=== PATIENT | male | born 1995 | race Caucasian/White ===

== ENCOUNTER 2017-01-24 21:06 | Emergency (ER) | payer BC, OTHER ==
[~2017-01-24] VITALS: Ht 170.2 cm; Wt 81.6 kg
[2017-01-25 00:51] VITALS: BP 133/84
[2017-01-25] MEDS ORDERED: ACETAMINOPHEN TAB 650MG DOSE (2X325MG) PO ONE (01:30)
[2017-01-25] MEDS ORDERED: KETOROLAC 60 MG/2 ML VIAL (J1885) IM ONE (01:30)
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
== END 2017-01-25 02:57 | disposition home or self-care (01) ==
LOC: M ED 22:11
DX: M25.561 Pain in right knee (principal)

== ENCOUNTER → 2017-02-03 | Outpatient (REF) | payer OTHER | LOC: M LAB REF 21:09 | PROVIDERS: ATTEND Physician Assistant | DX: R30.0 Dysuria (principal) ==

== ENCOUNTER 2017-03-07 22:31 | Emergency (ER) | payer BC, OTHER ==
[~2017-03-07] VITALS: Ht 167.6 cm; Wt 77.1 kg
[2017-03-07 23:30] LABS: BASO % 0.3 % (0.0-1.0); EOS # 0.2 K/mm3 (0.0-0.50); EOS % 1.4 % (0.0-3.0); LARGE UNSTAINED CELL # 0.1 K/mm3 (0.0-0.4); LARGE UNSTAINED CELL % 1.3 % (0.0-4.0); LYMPH # 3.6 K/mm3 (1.5-6.5); LYMPH % 31.9 % (24.0-44.0); MEAN CORPUSCULAR HEMOGLOBIN 32.4 pg (27.0-33.0); MEAN CORPUSCULAR VOLUME 98.1 fl (80.0-96.0); MONO # 0.6 K/mm3 (0.0-0.8); MONO % 5.5 % (0.0-5.0); NEUTROPHILS # 6.7 K/mm3 (1.8-7.7); NEUTROPHILS % 59.6 % (36.0-66.0); PLATELET COUNT, AUTOMATED 194 k/mm3 (150-450); RED CELL DISTRIBUTION WIDTH 12.5 % (11.5-14.5); WHITE BLOOD COUNT 11.2 K/mm3 (4.0-10.0)
[2017-03-07 23:59] LABS: ALBUMIN 3.9 GM/DL (3.2-5.2); ALBUMIN/GLOBULIN RATIO 1.34 (1.00-1.93); ALKALINE PHOSPHATASE 86 U/L (45-117); ALT/SGPT 16 U/L (12-78); ANION GAP 7 MEQ/L (8-16); AST/SGOT 11 U/L (15-37); BILIRUBIN,DIRECT 0.1 MG/DL (0.0-0.2); BILIRUBIN,TOTAL 0.5 MG/DL (0.2-1.0); BLOOD UREA NITROGEN 14 MG/DL (7-18); CALCIUM LEVEL 9.1 MG/DL (8.5-10.1); CARBON DIOXIDE LEVEL 30 MEQ/L (21-32); CHLORIDE LEVEL 102 MEQ/L (98-107); CREATININE FOR GFR 0.87 MG/DL (0.70-1.30); GLOMERULAR FILTRATION RATE > 60.0 (>60); GLUCOSE, FASTING 105 MG/DL (70-105); POTASSIUM SERUM 3.5 MEQ/L (3.5-5.1); SODIUM LEVEL 139 MEQ/L (136-145); TOTAL PROTEIN 6.8 GM/DL (6.4-8.2)
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
[2017-03-08 00:35] VITALS: BP 146/47
== END 2017-03-08 00:37 | disposition home or self-care (01) ==
LOC: M ED 22:49
DX: A08.4 Viral intestinal infection, unspecified (principal); N50.3 Cyst of epididymis; F17.200 Nicotine dependence, unspecified, uncomplicated

== ENCOUNTER → 2017-06-02 | Outpatient (CLI) | payer OTHER | LOC: M OUTALCOH 07:55 | PROVIDERS: ATTEND Psychiatry & Neurology Psychiatry | DX: F11.20 Opioid dependence, uncomplicated (principal); F15.20 Other stimulant dependence, uncomplicated ==

== ENCOUNTER 2017-06-09 14:15 | Outpatient (RCR) | payer OTHER | END 2017-06-17 | LOC: M OUTALCOH 14:15 | PROVIDERS: ATTEND Psychiatry & Neurology Psychiatry | DX: F11.20 Opioid dependence, uncomplicated (principal); F15.20 Other stimulant dependence, uncomplicated; F14.20 Cocaine dependence, uncomplicated ==

== ENCOUNTER → 2019-05-23 | Outpatient (REF) | payer MEDICAID, OTHER ==
[2019-05-23 17:40] LABS: BASO % 0.6 % (0.0-1.0); EOS # 0.1 10^3/uL (0.0-0.50); EOS % 1.3 % (0.0-3.0); HEMOGLOBIN 14.8 g/dl (13.5-17.5); LYMPH # 2.2 10^3/uL (1.5-6.5); LYMPH % 42.5 % (24.0-44.0); MEAN CORPUSCULAR HEMOGLOBIN 31.3 pg (27.0-33.0); MEAN CORPUSCULAR HGB CONC 32.9 g/dl (32.0-36.5); MEAN CORPUSCULAR VOLUME 95.1 fl (80.0-96.0); MONO # 0.6 10^3/uL (0.0-0.8); MONO % 10.5 % (0.0-5.0); NEUTROPHILS # 2.4 10^3/uL (1.8-7.7); NEUTROPHILS % 45.1 % (36.0-66.0); PLATELET COUNT, AUTOMATED 204 10^3/uL (150-450); RED BLOOD COUNT 4.73 10^6/uL (4.30-6.10); WHITE BLOOD COUNT 5.2 10^3/uL (4.0-10.0)
[2019-05-23 17:45] LABS: ALT/SGPT 32 U/L (12-78); BLOOD UREA NITROGEN 14 MG/DL (7-18); CALCIUM LEVEL 9.3 MG/DL (8.5-10.1); CARBON DIOXIDE LEVEL 30 MEQ/L (21-32); CHLORIDE LEVEL 106 MEQ/L (98-107); CREATININE FOR GFR 0.95 MG/DL (0.70-1.30); GLOMERULAR FILTRATION RATE > 60.0 (>60); GLUCOSE, FASTING 91 MG/DL (70-100); POTASSIUM SERUM 4.4 MEQ/L (3.5-5.1); SODIUM LEVEL 141 MEQ/L (136-145)
[2019-05-23 17:46] LABS: ALBUMIN 4.3 GM/DL (3.2-5.2); BILIRUBIN,DIRECT 0.3 MG/DL (0.0-0.2); BILIRUBIN,TOTAL 1.4 MG/DL (0.2-1.0); CHOLESTEROL LEVEL 152 MG/DL (<200); CHOLESTEROL RISK RATIO 2.923 (<5); FREE T4 1.05 NG/DL (0.76-1.46); HDL CHOLESTEROL 52 MG/DL (>40); LDL CHOLESTEROL 91 MG/DL (<100); NON-HDL-C 100 MG/DL; THYROID STIMULATING HORMONE 0.718 uIU/ML (0.358-3.740); TOTAL PROTEIN 7.2 GM/DL (6.4-8.2); TRIGLYCERIDES LEVEL 47 MG/DL (<150)
[2019-05-23 17:54] LABS: HEMOGLOBIN A1c 5.7 %
[2019-05-24 11:02] LABS: HEPATITIS B SURFACE ANTIGEN NEGATIVE (NEGATIVE)
[2019-05-24 11:30] LABS: HEPATITIS C VIRUS ABY INDEX 0.1 INDEX (<0.8)
== END ==
LOC: M LAB REF 16:28
PROVIDERS: ATTEND Nurse Practitioner Family
DX: Z13.9 Encounter for screening, unspecified (principal)

== ENCOUNTER → 2019-08-12 | Outpatient (REF) | payer OTHER ==
[2019-08-12 19:26] LABS: CHLAMYDIA DNA AMPLIFICATION NEGATIVE (NEGATIVE); GC DNA AMPLIFICATION NEGATIVE (NEGATIVE)
== END ==
LOC: M LAB REF 08:59
PROVIDERS: ATTEND Physician Assistant Medical
DX: Z20.2 Contact with and (suspected) exposure to infections with a predominantly sexual mode of transmission (principal)

== ENCOUNTER 2019-10-28 13:06 | Emergency (ER) | payer OTHER ==
[~2019-10-28] VITALS: Ht 170.2 cm; Wt 70.2 kg
[2019-10-28 15:01] VITALS: BP 134/79
== END 2019-10-28 15:03 | disposition home or self-care (01) ==
LOC: M ED 13:06
DX: F41.8 Other specified anxiety disorders (principal); F15.10 Other stimulant abuse, uncomplicated; F33.9 Major depressive disorder, recurrent, unspecified; F17.210 Nicotine dependence, cigarettes, uncomplicated

== ENCOUNTER 2020-03-28 09:47 | Emergency (ER) | payer OTHER ==
[~2020-03-28] VITALS: Ht 170.2 cm; Wt 68.2 kg
[2020-03-28 09:54] VITALS: BP 121/75
[2020-03-28] MEDS ORDERED: KETOROLAC 30 MG/ML 1ML VIAL IM ONE (10:15)
--- NOTE | 2020-03-28 10:58 | REP ---
RIGHT FOREARM, TWO VIEWS: There is no evidence of an acute fracture, dislocation or intrinsic bone disease. IMPRESSION: No fracture or dislocation. Electronically Signed by Hira Arevalo MD 04/02/2020 05:52 P
--- NOTE | 2020-03-28 11:14 | REP ---
LUMBOSACRAL SPINE: Five views of the lumbosacral spine performed. There is no compression fracture or malalignment. Disc spaces are well preserved. Posterior elements are intact. IMPRESSION: No fracture or dislocation. Electronically Signed by Hira Arevalo MD 04/02/2020 05:58 P
--- NOTE | 2020-03-28 11:15 | REP ---
LEFT KNEE, FIVE VIEWS: There is no evidence of an acute fracture, dislocation, or intrinsic bone disease. IMPRESSION: No fracture or dislocation. Electronically Signed by Hira Arevalo MD 04/02/2020 05:58 P
== END 2020-03-28 11:30 | disposition home or self-care (01) ==
LOC: EDBD 09:47 → M ED 09:47
DX: S80.02XA Contusion of left knee, initial encounter (principal); S50.11XA Contusion of right forearm, initial encounter; Y04.8XXA Assault by other bodily force, initial encounter; Y92.89 Other specified places as the place of occurrence of the external cause
CPT/HCPCS: 72110; 73090; 73564; 96372; 99284; J1885

== ENCOUNTER 2020-04-07 03:33 | Emergency (ER) | payer OTHER | END 2020-04-07 03:42 | disposition left against medical advice (07) | LOC: M ED 03:33 | DX: Z53.21 Procedure and treatment not carried out due to patient leaving prior to being seen by health care provider (principal) ==

== ENCOUNTER 2020-04-07 03:46 | Emergency (ER) | payer OTHER | END 2020-04-07 03:52 | disposition left against medical advice (07) | LOC: M ED 03:46 | DX: Z53.21 Procedure and treatment not carried out due to patient leaving prior to being seen by health care provider (principal) ==

== ENCOUNTER 2020-04-26 01:20 | Emergency (ER) | payer OTHER ==
[~2020-04-26] VITALS: Ht 170.2 cm; Wt 70.5 kg
[2020-04-26] MEDS ORDERED: NALOXONE INJ 0.4MG/1ML VIAL (J2310 PER 1MG) IV STA ×2 (02:07→05:11)
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
[2020-04-26 04:39] LABS: AMPHETAMINES LEVEL URINE POSITIVE (NEGATIVE); BARBITURATES URINE NEGATIVE (NEGATIVE); BENZODIAZEPINES URINE NEGATIVE (NEGATIVE); CANNABINOIDS URINE NEGATIVE (NEGATIVE); COCAINE METABOLITE URINE NEGATIVE (NEGATIVE); METHADONE URINE NEGATIVE (NEGATIVE); OPIATES URINE POSITIVE (NEGATIVE); PHENCYCLIDINE URINE NEGATIVE (NEGATIVE)
[2020-04-26 05:45] VITALS: BP 133/76
== END 2020-04-26 06:17 | disposition home or self-care (01) ==
LOC: M ED 01:20
DX: F15.10 Other stimulant abuse, uncomplicated (principal); F17.210 Nicotine dependence, cigarettes, uncomplicated
CPT/HCPCS: 36415; 70450; 72125; 80307; 96374; 96376; 99284; G0480; J2310

== ENCOUNTER 2020-08-17 18:32 | Emergency (ER) | payer OTHER ==
[~2020-08-17] VITALS: Ht 170.2 cm; Wt 61.9 kg
[2020-08-17] MEDS ORDERED: NS 1,000 ML IV ONE (19:30)
[2020-08-17] MEDS ORDERED: PANTOPRAZOLE 40MG VIAL (C9113 PER 1) IV ONE (19:30)
[2020-08-17] MEDS ORDERED: ONDANSETRON 4MG/2ML VIAL IV ONE (19:30)
[2020-08-17 20:03] LABS: BASO % 0.3 % (0.0-1.0); EOS # 0.1 10^3/uL (0.0-0.5); EOS % 0.5 % (0.0-3.0); HEMOGLOBIN 14.5 g/dl (13.5-17.5); LYMPH # 1.8 10^3/uL (1.5-5.0); LYMPH % 13.7 % (24.0-44.0); MEAN CORPUSCULAR HEMOGLOBIN 29.8 pg (27.0-33.0); MEAN CORPUSCULAR HGB CONC 31.5 g/dl (32.0-36.5); MEAN CORPUSCULAR VOLUME 94.7 fl (80.0-96.0); MONO # 1.1 10^3/uL (0.0-0.8); MONO % 8.1 % (0.0-5.0); NEUTROPHILS # 10.2 10^3/uL (1.5-8.5); NEUTROPHILS % 77.1 % (36.0-66.0); PLATELET COUNT, AUTOMATED 257 10^3/uL (150-450); RED BLOOD COUNT 4.86 10^6/uL (4.30-6.10); WHITE BLOOD COUNT 13.2 10^3/uL (4.0-10.0)
[2020-08-17 20:16] LABS: INR 0.97; PROTHROMBIN TIME 13.1 SECONDS (12.5-14.3)
[2020-08-17 20:24] LABS: ALBUMIN 4.2 GM/DL (3.2-5.2); ALT/SGPT 24 U/L (12-78); BILIRUBIN,DIRECT 0.1 MG/DL (0.0-0.2); BILIRUBIN,TOTAL 0.6 MG/DL (0.2-1.0); BLOOD UREA NITROGEN 12 MG/DL (7-18); CALCIUM LEVEL 9.4 MG/DL (8.5-10.1); CARBON DIOXIDE LEVEL 32 MEQ/L (21-32); CHLORIDE LEVEL 101 MEQ/L (98-107); CREATININE FOR GFR 0.81 MG/DL (0.70-1.30); ETHYL ALCOHOL (ETHANOL) < 0.003 % (0.000-0.010); GLOMERULAR FILTRATION RATE > 60.0 (>60); GLUCOSE, FASTING 94 MG/DL (70-100); LIPASE 64 U/L (73-393); SODIUM LEVEL 140 MEQ/L (136-145); TOTAL PROTEIN 7.7 GM/DL (6.4-8.2)
[2020-08-17 20:36] LABS: AMPHETAMINES LEVEL URINE NEGATIVE (NEGATIVE); BARBITURATES URINE NEGATIVE (NEGATIVE); BENZODIAZEPINES URINE NEGATIVE (NEGATIVE); CANNABINOIDS URINE NEGATIVE (NEGATIVE); COCAINE METABOLITE URINE NEGATIVE (NEGATIVE); METHADONE URINE NEGATIVE (NEGATIVE); OPIATES URINE POSITIVE (NEGATIVE); PHENCYCLIDINE URINE NEGATIVE (NEGATIVE)
[2020-08-17] MEDS ORDERED: BACT800T5 PO (20:39)
[2020-08-17 20:47] VITALS: BP 149/80
== END 2020-08-17 20:50 | disposition home or self-care (01) ==
LOC: M ED 18:32
DX: N39.0 Urinary tract infection, site not specified (principal); L02.419 Cutaneous abscess of limb, unspecified; F15.10 Other stimulant abuse, uncomplicated; F17.210 Nicotine dependence, cigarettes, uncomplicated
CPT/HCPCS: 80048; 80076; 80307; 81001; 83690; 85025; 85610; 87086; 96361; 96374; 96375; 99284; C9113; G0480; J2405

== ENCOUNTER 2020-11-02 21:07 | Emergency (ER) | payer OTHER ==
[~2020-11-02] VITALS: Ht 170.2 cm; Wt 78.9 kg
[~2020-11-02 21:07] MED LIST: BACT800T5 PO
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
--- OUTSIDE RECORDS SUMMARY | 2020-11-02 21:14 | CCD | Continuity of Care Document ---
Author Author [facility] Address [address] [place] [address] Phone Support Name Relationship Address Phone [employer] [address] [place] [address] Doctor Provided, Family No PRS Unknown Unava ilable Allergies, Adverse Reactions, Alerts No known allergies. Medications No known medications. Problems Active Problems Medical Problem Onset Date Status Drug abuse Active Procedures Procedure Date Performed Status Xray Chest One View August 20 1:47pm completed Relevant Diagnostic Tests and/or Laboratory Data Laboratory Results Test Date/Time Result Interpretation Reference Range Result Comment Performing Site White Blood Count August 20, 2020 1:35p m 6.6 10e3/uL 4.45-10.71 [facility], [address] [place] [address] [id number] Red Blood Count August 20, 2020 1:35pm 4.04 10e6/uL 4.3-6.1 [facility], [address] [place] [address] 54751 Hemoglobin August 20, 2020 1:35pm 12.4 g/dL 13-18 [facility], [address] [place] [address] 72451 Hematocrit August 20, 2020 1:35pm 38.1 % 42-52 [facility], [address] [place] [address] 36957 Mean Corpuscular Volume August 1:35pm 94.3 fl 80-96 [facility], [address] [place] [address] 59499 Mean Corpuscular Hemoglobin August 20, 2020 1:35pm 30.7 pg 27-31 [facility], [address] [place] [address] 89811 Mean Corpuscular Hemoglobin Concent August 20, 2020 1:35pm 32.5 g/dl 33-37 [facility], [address] [place] [address] 91185 Red Cell Distribution Width August 20, 2020 1:35pm 13 % 11-15 [facility], [address] [place] [address] Platelet Count August 20, 2020 1:35pm 222 10e3/ul 130-472 [facility], [address] [place] [address] Mean Platelet Volume August 20 1:35pm 9.5 fl 9.1-13.1 [facility], [address] [place] [address] Neutrophils (%) (Auto) August 20, 2020 1:35pm 61.4 % 41-77 [facility], [address] [place] [address] Absolute Neutrophil August 20 1:35pm 4.1 # 1.7-7.6 [facility], [address] [place] [address] Lymphocytes (%) (Auto) August 20, 2020 1:35pm 24.5 % 14-46 [facility], [address] [place] [address] Lymphocytes # (Auto) August 20 1:35pm 1.6 # 0.6-4.6 [facility], [address] [place] [address] Monocytes (%) (Auto) August 20 1:35pm 12.9 % 4-12 [facility], [address] [place] [address] 90043 Monocytes # August 20, 2020 1:35pm 0.9 # 0.2-1.2 [facility], [address] [place] [address] Eosinophils (%) (Auto) August 20, 2020 1:35pm 0.5 % 0-7 [facility], [address] [place] [address] Absolute Eosinophils (CBC) August 20, 2020 1:35pm 0.0 # 0.0-0.5 [facility], [address] [place] [address] Basophils (%) (Auto) August 20 1:35pm 0.5 % 0.4-1.3 [facility], [address] [place] [address] Absolute Basophils (CBC) August 1:35pm 0.0 # 0.0-0.2 [facility], [address] [place] [address] 23103 Immature Granulocyte % (Auto) Novemb 2019 1:35pm 0.2 % 0-2 [facility], [address] [place] [address] Absolute Immature Granulocyte (auto August 20, 2020 1:35pm 0.0 # 0-0.1 [facility], [address] [place] [address] 76713 Add Manual Differential August 1:35pm No [facility], [address] [place] [address] 45671 Urine Color August 20, 2020 1:29pm Yellow [facility], [address] [place] [address] 23336 Urine Appearance August 20, 2020 1:29pm Clear CLEAR [facility], [address] [place] [address] 54836 Urine pH August 20, 2020 1:29pm 6.0 [facility], [address] [place] [address] 43981 Urine Specific [place] August 20, 2020 1:29pm 1.034 [facility], [address] [place] [address] 33184 Urine Leukocyte Esterase August 1:29pm Negative NEGATIVE [facility], [address] [place] [address] 50234 Urine Nitrate August 20, 2020 1:29pm Negative NEGATIVE [facility], [address] [place] [address] 24634 Urine Protein August 20, 2020 1:29pm Trace NEGATIVE [facility], [address] [place] [address] 32822 Urine Glucose August 20, 2020 1:29pm Negative NEGATIVE [facility], [address] [place] [address] 28513 Urine Ketones August 20, 2020 1:29pm 40 mg/dl NEGATIVE [facility], [address] [place] [address] 65848 Urine Urobilinogen August 20 0 1:29pm 1 eu/dl [facility], [address] [place] [address] 33727 Urine Bilirubin August 20, 2020 1:29pm Negative NEGATIVE [facility], [address] [place] [address] 85098 Urine Blood August 20, 2020 1:29pm Negative NEGATIVE [facility], [address] [place] [address] 24439 Add Urine Microanalysis August 1:29pm No [facility], [address] [place] [address] 15870 Blood Urea Nitrogen August 20 1:35pm 18 mg/dL 9-23 [facility], [address] [place] [address] 12412 Sodium Level August 20, 2020 1:35pm 142 mmol/L 132-146 [facility], [address] [place] [address] 41742 Potassium Level August 20, 2020 1:35pm 3.9 mmol/L 3.5-5.5 [facility], [address] [place] [address] 91520 Chloride Level August 20, 2020 1:35pm 109 mmol/l 99-109 [facility], [address] [place] [address] 62193 Carbon Dioxide Level August 20 1:35pm 26 mmol/l 20-31 [facility], [address] [place] [address] 91701 Anion Gap August 20, 2020 1:35pm 11 mmol/l 8-16 [facility], [address] [place] [address] 37747 Glucose Level August 20, 2020 1:35pm 104 mg/dL 74-106 [facility], [address] [place] [address] 76429 Creatinine August 20, 2020 1:35pm 1.0 mg/dL 0.5-1.1 [facility], [address] [place] [address] 52483 Glomerular Filtration Rate Calc Nove [email or web address] 1:35pm Greater than 60 ml/min ABOVE 60 [facility], [address] [place] [address] 25281 Alanine Aminotransferase (ALT/SGPT) August 20, 2020 1:35pm 26 U/L 10-49 [facility], [address] [place] [address] 87985 Aspartate Amino Transf (AST/SGOT) No [email or web address] 1:35pm 29 U/L 0-33 [facility], [address] [place] [address] 46315 Alkaline Phosphatase August 20 1:35pm 96 U/L 45-129 [facility], [address] [place] [address] 32828 Calcium Level August 20, 2020 1:35pm 9.4 mg/dL 8.5-10.1 [facility], [address] [place] [address] 39410 Total Bilirubin August 20, 2020 1:35pm 1.0 mg/dL 0.3-1.2 [facility], [address] [place] [address] 96890 Albumin August 20, 2020 1:35pm 3.9 g/dL 3.2-4.8 [facility], [address] [place] [address] 80177 Serum Total Protein August 20 1:35pm 7.2 g/dL 5.7-8.2 [facility], [address] [place] [address] Urine Marijuana (THC) Screen 2019 2:30pm Negative ng/mL Cutoff 50 [facility], [address] [place] [address] Urine Phencyclidine Screen August 20, 2020 2:30pm Negative ng/mL Cutoff 25 [facility], [address] [place] [address] Urine Cocaine Screen August 20 2:30pm Negative ng/mL Cutoff 150 [facility], [address] [place] [address] Urine Methamphetamines Screen 2019 2:30pm Presumptive positive ng/mL Cutoff 500 This test is for screening purposes o nly. Confirmation of positive results will be sent to our Reference lab only at the Physician's request. [facility], [address] [place] [address] Urine Opiates Screen August 20 2:30pm Presumptive positive ng/mL Cutoff 100 This test is for screening purposes o nly. Confirmation of positive results will be sent to our Reference lab only at the Physician's request. [facility], [address] [place] [address] Urine Amphetamines Screen August 202019 2:30pm Presumptive positive ng/mL Cutoff 500 This test is for screening purposes o nly. Confirmation of positive results will be sent to our Reference lab only at the Physician's request. [facility], [address] [place] [address] Urine Benzodiazepines Screen 2019 2:30pm Negative ng/mL Cutoff 150 [facility], [address] [place] [address] Ur Tricyclic Antidepressants Screen August 20, 2020 2:30pm Negative ng/mL Cutoff 300 [facility], [address] [place] [address] Urine Methadone Screen August 20, 2020 2:30pm Negative ng/mL Cutoff 200 [facility], [address] [place] [address] Urine Barbiturates August 20 0 2:30pm Negative ng/mL Cutoff 200 [facility], [address] [place] [address] Urine Oxycodone Screen August 20, 2020 2:30pm Negative ng/mL Cutoff 100 [facility], [address] [place] [address] Urine Propoxyphene Screen August 202019 2:30pm Negative ng/mL Cutoff 300 [facility], [address] [place] [address] 69954 Urine Buprenorphine Screen August 20, 2020 2:30pm Negative ng/mL Cutoff 10 [facility], [address] [place] [address] 49947 Acetaminophen Level August 20 1:35pm Less than 2.0 ug/mL 10 -30 [facility], [address] [place] [address] 68066 Salicylates Level August 20, 2020 1:35p m 0.0 mg/dl 0.0-2.8 MILD TOXICITY: Greater than 30.0 mg/dlSEVERE TOXICITY: Greater than 50.0 mg/dl [facility], [address] [place] [address] 71417 Ethyl Alcohol Level August 20 1:35pm Less than 3 mg/dL 50- 79 md/dL Mild Intoxication>80 mg/dL Intoxication>300 mg/dL Severe Impairment>400 mg/dL CriticalFor Medical Purposes Only [facility], [address] [place] [address] 13961 Thyroid Stimulating Hormone (TSH) No 2019 1:35pm 0.54 uIU/mL 0.35-5.50 [facility], [address] [place] [address] 25574 Health Concerns Health Concerns may be documented in an alternate section. Advance Directives Advance Directive Response Recorded Date/Time Advanced Directive No No [email or web address] 2:08pm Does Patient have a DNR? No August 20, 2020 2:08pm Healthcare Proxy No Maryann mcleod 2019 2:08pm Living Will No August 20, 2020 1:44pm Chief Complaint and Reason for Visit Chief Complaint OVERDOSE Encounters Encounter Location(s) Ar rival/Admit Date Discharge/Depart Date Provider(s) Departed Emergency [facility]-Emergency Room ER August 20, 2020 1:27pm August 20, 2020 4:17pm null Assessments No Assessments Information Available Functional Status No Functional Status information available Goals Goals may be documented in an alternate section. Immunizations No Immunization Information Available Mental Status Observation Response Ashvin e Recorded Impairments No impairments or barriers August 20, 2020 2:02pm Medical Equipment No Medical Equipment Information available Insurance Providers Guarantor CARLIN Winchester [facility] Address [address] [place] [address] Contact Info. Home Phone: Payer Policy Id Coverage Id Subscriber's Name Subscriber Id Effective Date Expiration Date MEDICAID [id number] CARLIN Winchester I[employer] [id number] Self Pay Self N/A Plan of Treatment [...] of Observation Current every day smoker August 2:08pm Observation Status Observation Response Ashvin e of Response Smoking Status Current every day smoker August 20, 2020 2:08pm Assigned Sex Male Vital Signs Vital Reading [...]
[2020-11-02] MEDS ORDERED: HALOPERIDOL 5MG/ML VIAL (J1630 PER 1) IM STA (22:38)
[2020-11-02] MEDS ORDERED: LORazepam 2 MG/ML VIAL IM STA (22:38)
[2020-11-03 00:18] LABS: HEMATOCRIT 41.2 % (42.0-52.0); HEMOGLOBIN 13.7 g/dl (13.5-17.5); MEAN CORPUSCULAR HEMOGLOBIN 31.4 pg (27.0-33.0); MEAN CORPUSCULAR HGB CONC 33.3 g/dl (32.0-36.5); MEAN CORPUSCULAR VOLUME 94.5 fl (80.0-96.0); PLATELET COUNT, AUTOMATED 222 10^3/uL (150-450); RED BLOOD COUNT 4.36 10^6/uL (4.30-6.10); WHITE BLOOD COUNT 6.5 10^3/uL (4.0-10.0)
[2020-11-03 00:25] LABS: ACETAMINOPHEN LEVEL < 2.0 UG/ML (10.0-30.0); ALBUMIN 4.1 GM/DL (3.2-5.2); ALT/SGPT 28 U/L (12-78); BILIRUBIN,DIRECT 0.2 MG/DL (0.0-0.2); BILIRUBIN,TOTAL 0.9 MG/DL (0.2-1.0); BLOOD UREA NITROGEN 10 MG/DL (7-18); CALCIUM LEVEL 9.4 MG/DL (8.5-10.1); CARBON DIOXIDE LEVEL 26 MEQ/L (21-32); CHLORIDE LEVEL 109 MEQ/L (98-107); ETHYL ALCOHOL (ETHANOL) < 0.003 % (0.000-0.010); GLOMERULAR FILTRATION RATE > 60.0 (>60); GLUCOSE, FASTING 111 MG/DL (70-100); SALICYLATE LEVEL < 1.7 MG/DL (5.0-30.0); SODIUM LEVEL 142 MEQ/L (136-145); TOTAL PROTEIN 7.4 GM/DL (6.4-8.2)
[2020-11-03 04:13] LABS: AMPHETAMINES LEVEL URINE POSITIVE (NEGATIVE); BARBITURATES URINE NEGATIVE (NEGATIVE); BENZODIAZEPINES URINE NEGATIVE (NEGATIVE); CANNABINOIDS URINE POSITIVE (NEGATIVE); COCAINE METABOLITE URINE NEGATIVE (NEGATIVE); METHADONE URINE NEGATIVE (NEGATIVE); OPIATES URINE NEGATIVE (NEGATIVE); PHENCYCLIDINE URINE NEGATIVE (NEGATIVE)
[2020-11-03 10:57] VITALS: BP 138/89
== END 2020-11-03 11:09 | disposition home or self-care (01) ==
LOC: M ED 21:07
DX: F15.20 Other stimulant dependence, uncomplicated (principal)
CPT/HCPCS: 80048; 80076; 80307; 84443; 85027; 96372; 99284; G0480; J1630; J2060

== ENCOUNTER 2020-11-05 18:51 | Inpatient (IN) | payer OTHER ==
[~2020-11-05] VITALS: Ht 170.2 cm; Wt 78.9 kg
[2020-11-05 20:08] LABS: AMPHETAMINES LEVEL URINE POSITIVE (NEGATIVE); BARBITURATES URINE NEGATIVE (NEGATIVE); BENZODIAZEPINES URINE NEGATIVE (NEGATIVE); CANNABINOIDS URINE NEGATIVE (NEGATIVE); COCAINE METABOLITE URINE NEGATIVE (NEGATIVE); METHADONE URINE NEGATIVE (NEGATIVE); OPIATES URINE POSITIVE (NEGATIVE); PHENCYCLIDINE URINE NEGATIVE (NEGATIVE)
[2020-11-05 20:31] LABS: HEMATOCRIT 44.2 % (42.0-52.0); HEMOGLOBIN 14.5 g/dl (13.5-17.5); MEAN CORPUSCULAR HEMOGLOBIN 31.1 pg (27.0-33.0); MEAN CORPUSCULAR HGB CONC 32.8 g/dl (32.0-36.5); MEAN CORPUSCULAR VOLUME 94.8 fl (80.0-96.0); PLATELET COUNT, AUTOMATED 184 10^3/uL (150-450); RED BLOOD COUNT 4.66 10^6/uL (4.30-6.10); WHITE BLOOD COUNT 5.8 10^3/uL (4.0-10.0)
[2020-11-05 21:26] LABS: ACETAMINOPHEN LEVEL < 2.0 UG/ML (10.0-30.0); ALBUMIN 4.2 GM/DL (3.2-5.2); ALT/SGPT 24 U/L (12-78); BILIRUBIN,DIRECT 0.2 MG/DL (0.0-0.2); BILIRUBIN,TOTAL 0.6 MG/DL (0.2-1.0); BLOOD UREA NITROGEN 12 MG/DL (7-18); CALCIUM LEVEL 9.3 MG/DL (8.5-10.1); CARBON DIOXIDE LEVEL 31 MEQ/L (21-32); CHLORIDE LEVEL 104 MEQ/L (98-107); CREATININE FOR GFR 0.93 MG/DL (0.70-1.30); ETHYL ALCOHOL (ETHANOL) < 0.003 % (0.000-0.010); GLOMERULAR FILTRATION RATE > 60.0 (>60); GLUCOSE, FASTING 88 MG/DL (70-100); SALICYLATE LEVEL < 1.7 MG/DL (5.0-30.0); SODIUM LEVEL 139 MEQ/L (136-145); THYROID STIMULATING HORMONE 0.451 uIU/ML (0.358-3.740); TOTAL PROTEIN 7.3 GM/DL (6.4-8.2)
[2020-11-05] MEDS ORDERED: MOM 30ML SUSPENSION UDC PO PRN (23:30)
[2020-11-05] MEDS ORDERED: MAALOX 30 ML SUSP *UDC PO PRN (23:30)
[2020-11-05] MEDS ORDERED: ACETAMINOPHEN TAB 650MG DOSE (2X325MG) PO PRN (23:30)
[2020-11-06] MEDS ORDERED: HALOPERIDOL 5MG/ML VIAL (J1630 PER 1) IM ONE
[2020-11-06] MEDS ORDERED: LORazepam 2 MG/ML VIAL IM ONE
[2020-11-06 01:05] LABS: RSV AMPLIFICATION NEGATIVE (NEGATIVE)
[2020-11-06 08:58] VITALS: BP 122/69
[2020-11-06] MEDS ORDERED: SERTRALINE HCL 50 MG TAB PO SCH (09:00)
--- NOTE | 2020-11-06 16:51 | IPNPDOC ---
Date Seen The patient was seen on 11/06/20. Progress Note I attempted to conduct medical history and physical, however patient refuses to be seen, is yelling profanities and throwing food across room. Please re-consult when patient is stable. VS, I&O, 24H, Fishbone Vital Signs/I&O Vital Signs Date Time Temp Pulse Resp B/P (MAP) Pulse Ox O2 Delivery O2 Flow Rate FiO2 11/06/20 08:58 98.1 98 14 122/69 (86) 97 Room Air Laboratory Data 24H LABS Laboratory Tests 2 11/05/20 19:25: Urine Opiates Screen POSITIVEH, Urine Methadone Screen NEGATIVE, Urine Barbiturates Screen NEGATIVE, Urine Phencyclidine Screen NEGATIVE, Urine Amphetamines Screen POSITIVEH, Urine Benzodiazepines Screen NEGATIVE, Urine Cocaine Metabolite Screen NEGATIVE, Urine Cannabinoids Screen NEGATIVE 11/05/20 20:21: Anion Gap 4L, Glomerular Filtration Rate > 60.0, Calcium Level 9.3, Total Bilirubin 0.6, Direct Bilirubin 0.2, Aspartate Amino Transf (AST/SGOT) 22, Alanine Aminotransferase (ALT/SGPT) 24, Alkaline Phosphatase 72, Total Protein 7.3, Albumin 4.2, Albumin/Globulin Ratio 1.4, Thyroid Stimulating Hormone (TSH) 0.451, Salicylates Level < 1.7L, Acetaminophen Level < 2.0L, Ethyl Alcohol Level < 0.003 11/05/20 20:22: Nucleated Red Blood Cells % (auto) 0.0 11/06/20 00:05: Coronavirus (COVID-19)(PCR) POSITIVEA, Influenza Type A (RT-PCR) NEGATIVE, Influenza Type B (RT-PCR) NEGATIVE, Respiratory Syncytial Virus (PCR) NEGATIVE CBC/BMP Laboratory Tests 11/05/20 20:21 11/05/20 20:22 FORTUNATO VASQUEZ MD Nov 06, 2020 16:50
--- NOTE | 2020-11-06 20:35 | ECGEPIP ---
[facility] - ED Test Date: 2020-11-05 Pat Name: CARLIN FISHMAN Department: Room: [place] [address] Gender: Male Inspector [employer]: : 1995 Requested By: AUTUMN Myrick Order Number: [id number] Reading MD: Abel Bassett Measurements Intervals [place] Rate: 93 P: 55 MN: 157 QRS: 76 QRSD: 93 T: 48 QT: 374 QTc: 466 Interpretive Statements SINUS RHYTHM NO PRIORS FOR COMPARISON Electronically Signed on 11-06-2020 20:35:14 EST by Abel Bassett
[2020-11-06] MEDS: traZODone 50 MG TAB PO PRN (20:59)
[2020-11-06] MEDS: OLANZapine ORAL DISINTEGRATING TAB 5MG PO PRN (21:00)
[2020-11-07] MEDS: ESCITALOPRAM OXALATE 5MG TABLET (LEXAPRO) PO SCH (09:55)
[2020-11-07] MEDS: risperiDONE 0.5 MG TAB PO SCH ×2 (09:55→21:36)
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
[2020-11-07] MEDS ORDERED: LORazepam 2 MG/ML VIAL IM STA (14:04)
[2020-11-07] MEDS ORDERED: diphenhydrAMINE 50MG/ML VIAL (J1200) IM STA (14:04)
[2020-11-07] MEDS ORDERED: OLANZapine INTRAMUSCULAR 10MG VIAL IM ONE (14:15)
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
[2020-11-07 18:04] VITALS: BP 142/70
[2020-11-07] MEDS: OLANZapine ORAL DISINTEGRATING TAB 5MG PO PRN (21:36)
[2020-11-07] MEDS: traZODone 50 MG TAB PO PRN (21:36)
[2020-11-07 21:40] VITALS: BP 124/60
[2020-11-08 06:00] VITALS: BP 128/72
[2020-11-08] MEDS: risperiDONE 0.5 MG TAB PO SCH (09:04)
[2020-11-08] MEDS: ESCITALOPRAM OXALATE 5MG TABLET (LEXAPRO) PO SCH (09:04)
[2020-11-08] MEDS ORDERED: OLANZapine ORAL DISINTEGRATING TAB 5MG PO STA (12:48)
[2020-11-08] MEDS ORDERED: LORazepam 2 MG TAB PO STA (12:48)
[2020-11-08] MEDS: risperiDONE 2 MG TAB PO SCH (21:00)
[2020-11-08] MEDS ORDERED: risperiDONE 1 MG TAB PO SCH (21:00)
--- NOTE | 2020-11-08 22:00 | MHIPNPDOC ---
[facility] Progress Note Progress Note DATE OF SERVICE: 11/08/20 HISTORY: . VITAL SIGNS: See below. NEW TEST RESULTS: . CURRENT MEDICATIONS: See below. MENTAL STATUS EXAMINATION: Patient is a -year old male, who is . Speech: Is . Language skills are . Thought processes including: . Thought content: . Abstract reasoning, and computation: . Description of associ ations: . Description of abnormal or psychotic thoughts: . Judgment: . Insight: [very limited, good, fair. poor]. Orientation: . Recent and remote memory: . Attention span and concentration: .Subjective: Mr. Molina is a 25 year old undomiciled, single, male with a history of Polysubstance use disorder (Stimulant, Opioid and Cannabis use), severe type, who was brought into the [facility] ED and then later admitted, to the [facility], following experiencing a depressive decompensation with suicidal ideation, intent and vague plan. Staff stated that they witnessed him attempting suffocate himself; Vitals were taken, all were within normal limits including oxygen saturation; he was very agitated/anxious/psychomotor agitated; appeared increasingly paranoid/guarded/responding to internal stimuli; agreed and asked to take any psychotropic medication to reduce his paranoia and anxiety; received Zyprexa 10 mg by mouth and Ativan 2 mg by mouth with fair/good relief of symptoms. Now, resting comfortable, vitals stable. Objective: General Appearance: unkempt, disheveled, appears stated age, hospital scubs/clothing Build: thin Demeanor: hostile, mistrustful, withdrawn, guarded, very figety Eye Contact: poor Activity: agitated, anxious, hostile Behavior: uncooperative, agitated, impulsive, aggressive, hyperactive, restless, loss of interests, anhedonia, withdrawn Speech: rapid, pressured Mood: angry, irritable Affect: labile, hostile, disorganized Thought Process: flight of ideas, racing Thought Content (Delusions): persecutory, paranoia, delusions Thought Content (Other): guarded, internal-stimuli, appears paranoid Thought Content (Aggressive): none reported Perception (Hallucinations): auditory Perception (Other): none reported Cognition (Impairment of): attention/concentration, ability to abstract Cognition(Intelligence Est.): average Oriented: Awake, Alert, Oriented times three Insight: poor Judgment: Poor Psychosis: Psychotic Perceptions A/P: Mr. Molina is a 25 year old undomiciled, single, male with a history of Polysubstance use disorder (Stimulant, Opioid and Cannabis use), severe type, who was brought into the [facility] ED and then later admitted, to the [facility], following experiencing a depressive decompensation with suicidal ideation, intent and vague plan. 1) Continued Lexapro 5 mg q am for depressive/anxiety sxs and increased Risperdal to 2 mg twice daily for alleviation of psychotic sxs 2) Continued to encourage participation in community milieu. 3) COVID precautions; Continue to collaborate with Hospitalist in terms of optimizing his medical comorbidities. 4) He would likely greatly benefit from a halfway drug rehabilitation program. 5) He is now on a 1:1 for safety Dx: Stimulant/Opioid use disorder, severe type r/o substance induced psychotic disorder r/o Schizoaffective disorder, Bipolar type Total time spent: 60 minutes Vital Signs Vital Signs Date Time Temp Pulse Resp B/P (MAP) Pulse Ox O2 Delivery O2 Flow Rate FiO2 11/08/20 06:00 97.9 76 17 128/72 (90) 95 Room Air Current Medications Current Medications Medications (Trade) Dose Ordered Sig/Tristin Route PRN Reason Start Time Stop Time Status Last Admin Dose Admin Acetaminophen (Tylenol Tab) 650 mg Q6HP PRN PO HEADACHE or DISCOMFORT 11/05/20 23:30 Al Hydrox/Mg Hydrox/Simethicone (Mylanta) 30 ml Q4HP PRN PO HEARTBURN/INDIGESTION 11/05/20 23:30 Diphenhydramine HCl (Benadryl) 50 mg STAT STAT IM 11/07/20 14:04 11/07/20 14:08 DC 11/07/20 14:21 Escitalopram Oxalate (Lexapro) 5 mg DAILY PO 11/07/20 09:00 11/08/20 09:04 Home Med (Med Rec Complete!) ASDIRECTED XX 11/05/20 22:30 11/05/20 22:20 DC Lorazepam (Ativan) 2 mg Q6HP PRN PO ANXIETY/AGITATION 11/08/20 17:15 Lorazepam (Ativan) 2 mg STAT STAT IM 11/07/20 14:04 11/07/20 14:08 DC 11/07/20 14:21 Lorazepam (Ativan) 2 mg STAT STAT PO 11/08/20 12:48 11/08/20 12:50 DC 11/08/20 12:53 Magnesium Hydroxide (Milk Of Magnesia) 30 ml DAILYPRN PRN PO CONSTIPATION 11/05/20 23:30 Miscellaneous (Unresolved Clarification Entry) SEE LABEL COMMENTS DAILY XX 11/07/20 09:00 Nicotine (Nicoderm Cq 21mg) 1 patch DAILY PRN TD Nicotine withdrawl. 11/05/20 23:30 Olanzapine (ZyPREXA ZYDIS) 5 mg Q4HP PRN PO AGITATION 11/05/20 23:30 11/07/20 21:36 Olanzapine (ZyPREXA ZYDIS) 10 mg STAT STAT PO 11/08/20 12:48 11/08/20 12:50 DC 11/08/20 12:53 Risperidone (RisperDAL) 0.5 mg BID PO 11/07/20 09:00 11/08/20 10:26 DC 11/08/20 09:04 Risperidone (RisperDAL) 1 mg BID PO 11/08/20 21:00 11/08/20 17:12 DC Risperidone (RisperDAL) 2 mg BID PO 11/08/20 21:00 Sertraline HCl (Zoloft) 50 mg DAILY PO 11/06/20 09:00 11/07/20 08:51 DC 11/06/20 10:05 Trazodone HCl (Desyrel) 50 mg QHSP PRN PO INSOMNIA 11/05/20 23:30 11/07/20 21:36 Allergies Coded Allergies: No Known Allergies (Verified , 10/28/19) MELA SMITH MD Nov 08, 2020 22:00
[2020-11-09] MEDS: ESCITALOPRAM OXALATE 5MG TABLET (LEXAPRO) PO SCH (08:17)
[2020-11-09] MEDS: risperiDONE 2 MG TAB PO SCH ×2 (08:17→21:00)
[2020-11-09 09:15] VITALS: BP 142/72
[2020-11-09 09:30] VITALS: BP 139/67
[2020-11-09] MEDS ORDERED: HALOPERIDOL 5MG/ML VIAL (J1630 PER 1) IV STA (09:30)
[2020-11-09] MEDS ORDERED: HALOPERIDOL 5MG/ML VIAL (J1630 PER 1) IM STA ×2 (09:32→09:55)
[2020-11-09 09:45] VITALS: BP_SYST 136; BP_SYST 139; BP_DIAS 67; BP_DIAS 75
[2020-11-09] MEDS ORDERED: LORazepam 2 MG/ML VIAL IM STA (09:55)
[2020-11-09] MEDS ORDERED: diphenhydrAMINE 50MG/ML VIAL (J1200) IM STA (09:55)
[2020-11-09 10:00] VITALS: BP 136/75
[2020-11-09] MEDS: DIVALPROEX 500 MG TAB PO SCH (21:00)
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
[2020-11-10] MEDS: risperiDONE 2 MG TAB PO SCH ×2 (09:56→21:36)
[2020-11-10] MEDS: DIVALPROEX 500 MG TAB PO SCH ×2 (09:56→21:36)
[2020-11-10] MEDS: LORazepam 2 MG TAB PO PRN (13:21)
--- NOTE | 2020-11-10 15:19 | MHIPNPDOC ---
[facility] Progress Note Progress Note Subjective: Mr. Molina is a 25 year old undomiciled, single, male with a history of Polysubstance use disorder (Stimulant, Opioid and Cannabis use), severe type, who was brought into the [facility] ED and then later admitted, to the [facility], following experiencing a depressive decompensation with suicidal ideation, intent and vague plan. Rafa seems to be approaching closer to his baseline now. He was much more lucid and goal directed with conversation today. Can you call my family and see who will let me stay with them, so I can attend rehab? He still appeared to have some paranoid ideation present but the psychosis seems to be greatly abating in intensity. He was compliant with his psychotropic regimen. Denies any side effects from the Risperdal or Depakote. Overall, seems to be much more organized in thought; ADLs are improving, as he requests to shower daily. Objective: Seen and evaluated, alert and oriented times three, hygiene fair/good, fair eye contact, appears stated age, no psychomotor abnormalities; Speech is decreased in production, slow in rate and soft in volume; Mood: a little better, affect: constricted, decreased intensity and range. TP are circumstantial and a little more organized than prior assessments; TC contains paranoid ideation but no huy delusional themes; denies any passive/active S/H/I/I/P; denies AH/VH/TH but still does appear to be somewhat internally preoccupied, responding to internal stimuli; insight, impulse control and judgment are poor Diagnoses: Opioid/Stimulant use disorder, severe type Unspecified psychotic disorder r/o substance induced psychotic disorder A/P: Mr. Molina is a 25 year old undomiciled, single, male with a history of Polysubstance use disorder (Stimulant, Opioid and Cannabis use), severe type, who was brought into the [facility] ED and then later admitted, to the [facility], following experiencing a depressive decompensation with suicidal ideation, intent and vague plan. 1) Today, continued Depakote DR 500 mg po BID; Depakote trough level ordered for 11/14/20. Continued Risperdal at 2 mg twice daily for alleviation of mood/psychotic sxs 2) Continued to encourage participation in community milieu. 3) COVID precautions; Continue to collaborate with Hospitalist in terms of optimizing his medical comorbidities. 4) He would likely greatly benefit from a longterm drug rehabilitation program, upon clinical stabilization. 5) Continue 1:1 for safety Total time spent: 30 minutes Vital Signs Vital Signs Date Time Temp Pulse Resp B/P (MAP) Pulse Ox O2 Delivery O2 Flow Rate FiO2 11/09/20 10:00 98.8 84 16 136/75 96 Room Air Current Medications Current Medications Medications (Trade) Dose Ordered Sig/Tristin Route PRN Reason Start Time Stop Time Status Last Admin Dose Admin Acetaminophen (Tylenol Tab) 650 mg Q6HP PRN PO HEADACHE or DISCOMFORT 11/05/20 23:30 Al Hydrox/Mg Hydrox/Simethicone (Mylanta) 30 ml Q4HP PRN PO HEARTBURN/INDIGESTION 11/05/20 23:30 Diphenhydramine HCl (Benadryl) 50 mg STAT STAT IM 11/07/20 14:04 11/07/20 14:08 DC 11/07/20 14:21 Diphenhydramine HCl (Benadryl) 50 mg STAT STAT IM 11/09/20 09:55 11/09/20 09:58 DC 11/09/20 10:08 Divalproex Sodium (Depakote) 500 mg BID PO 11/09/20 21:00 11/10/20 09:56 Escitalopram Oxalate (Lexapro) 5 mg DAILY PO 11/07/20 09:00 11/09/20 12:49 DC 11/08/20 09:04 Haloperidol (Haldol) 2 mg STAT STAT IM 11/09/20 09:32 11/09/20 09:33 Cancel Haloperidol (Haldol) 2 mg STAT STAT IV 11/09/20 09:30 11/09/20 09:33 DC 11/09/20 09:40 Haloperidol (Haldol) 10 mg STAT STAT IM 11/09/20 09:55 11/09/20 09:58 DC 11/09/20 10:07 Home Med (Med Rec Complete!) ASDIRECTED XX 11/05/20 22:30 11/05/20 22:20 DC Lorazepam (Ativan) 2 mg Q6HP PRN PO ANXIETY/AGITATION 11/08/20 17:15 11/10/20 13:21 Lorazepam (Ativan) 2 mg STAT STAT IM 11/07/20 14:04 11/07/20 14:08 DC 11/07/20 14:21 Lorazepam (Ativan) 2 mg STAT STAT IM 11/09/20 09:55 11/09/20 09:58 DC 11/09/20 10:08 Lorazepam (Ativan) 2 mg STAT STAT PO 11/08/20 12:48 11/08/20 12:50 DC 11/08/20 12:53 Magnesium Hydroxide (Milk Of Magnesia) 30 ml DAILYPRN PRN PO CONSTIPATION 11/05/20 23:30 Miscellaneous (Unresolved Clarification Entry) SEE LABEL COMMENTS DAILY XX 11/07/20 09:00 Nicotine (Nicoderm Cq 21mg) 1 patch DAILY PRN TD Nicotine withdrawl. 11/05/20 23:30 Olanzapine (ZyPREXA ZYDIS) 5 mg Q4HP PRN PO AGITATION 11/05/20 23:30 11/07/20 21:36 Olanzapine (ZyPREXA ZYDIS) 10 mg STAT STAT PO 11/08/20 12:48 11/08/20 12:50 DC 11/08/20 12:53 Risperidone (RisperDAL) 0.5 mg BID PO 11/07/20 09:00 11/08/20 10:26 DC 11/08/20 09:04 Risperidone (RisperDAL) 1 mg BID PO 11/08/20 21:00 11/08/20 17:12 DC Risperidone (RisperDAL) 2 mg BID PO 11/08/20 21:00 11/10/20 09:56 Sertraline HCl (Zoloft) 50 mg DAILY PO 11/06/20 09:00 11/07/20 08:51 DC 11/06/20 10:05 Trazodone HCl (Desyrel) 50 mg QHSP PRN PO INSOMNIA 11/05/20 23:30 11/07/20 21:36 Allergies Coded Allergies: No Known Allergies (Verified , 10/28/19) MELA SMITH MD Nov 10, 2020 15:19
[2020-11-10 16:28] VITALS: BP 100/52
[2020-11-10] MEDS: OLANZapine ORAL DISINTEGRATING TAB 5MG PO PRN (17:31)
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
[2020-11-10 21:26] VITALS: BP 119/54
[2020-11-11] MEDS: DIVALPROEX 500 MG TAB PO SCH ×2 (09:12→20:39)
[2020-11-11] MEDS: risperiDONE 2 MG TAB PO SCH ×2 (09:12→20:39)
[2020-11-11] MEDS: OLANZapine ORAL DISINTEGRATING TAB 5MG PO PRN ×2 (11:54→21:48)
[2020-11-11] MEDS: NICOTINE 21MG/24HR 1 EA TRANSDERMAL TD PRN (11:59)
--- NOTE | 2020-11-11 16:57 | MHIPNPDOC ---
[facility] Progress Note Progress Note DATE OF SERVICE: 11/11/20 Subjective: Mr. Molina is a 25 year old undomiciled, single, male with a history of Polysubstance use disorder (Stimulant, Opioid and Cannabis use), severe type, who was brought into the [facility] ED and then later admitted, to the [facility], following experiencing a depressive decompensation with suicidal ideation, intent and vague plan. Rafa has shown a lot of improvement in terms of his hygiene/ADLs and today, really showed a great amount of lucidity in terms of being motivated for rehab treatment; And also his thought processes were much more organized, overall, and clear. Sleep is restful. He appears much less internally preoccupied. Mood is improved along with affect; denies any other complaints. Looking forward to getting my life back on track when I leave tomorrow; Im so happy my mother is going to let me stay with her, before I go to Rehab. Objective: Seen and evaluated, alert and oriented times three, hygiene fair/good, fair eye contact, appears stated age, no psychomotor abnormalities; Speech is decreased in production, slow in rate and soft in volume; Mood: a lot more clear, affect: more bright; TP are more organized and linear; TC contains paranoid ideation but no huy delusional themes; denies any current passive/active S/H/I/I/P; denies AH/VH/TH but does appear somewhat internally preoccupied, responding to internal stimuli; insight, impulse control and judgment are improving Diagnoses: Opioid/Stimulant use disorder, severe type Unspecified psychotic disorder r/o substance induced psychotic disorder A/P: Mr. Molina is a 25 year old undomiciled, single, male with a history of Polysubstance use disorder (Stimulant, Opioid and Cannabis use), severe type, who was brought into the [facility] ED and then later admitted, to the [facility], following experiencing a depressive decompensation with suicidal ideation, intent and vague plan. 1) Today, continued Depakote DR 500 mg po BID; Continued Risperdal at 2 mg twice daily for alleviation of mood/psychotic sxs 2) Continued to encourage participation in community milieu. 3) COVID precautions; Continue to collaborate with Hospitalist in terms of optimizing his medical comorbidities. 4) Now that he is close to his baseline, he is being discharged to his mother s residence, and will be attending an inpatient Rehabilitation program on 11/12/20 5) Continue 1:1 for safety Total time spent: 30 minutes Vital Signs Vital Signs Date Time Temp Pulse Resp B/P (MAP) Pulse Ox O2 Delivery O2 Flow Rate FiO2 11/10/20 21:26 98.6 76 14 119/54 (75) 11/10/20 16:28 96 Room Air Current Medications Current Medications Medications (Trade) Dose Ordered Sig/Tristin Route PRN Reason Start Time Stop Time Status Last Admin Dose Admin Acetaminophen (Tylenol Tab) 650 mg Q6HP PRN PO HEADACHE or DISCOMFORT 11/05/20 23:30 Al Hydrox/Mg Hydrox/Simethicone (Mylanta) 30 ml Q4HP PRN PO HEARTBURN/INDIGESTION 11/05/20 23:30 Diphenhydramine HCl (Benadryl) 50 mg STAT STAT IM 11/07/20 14:04 11/07/20 14:08 DC 11/07/20 14:21 Diphenhydramine HCl (Benadryl) 50 mg STAT STAT IM 11/09/20 09:55 11/09/20 09:58 DC 11/09/20 10:08 Divalproex Sodium (Depakote) 500 mg BID PO 11/09/20 21:00 11/11/20 09:12 Escitalopram Oxalate (Lexapro) 5 mg DAILY PO 11/07/20 09:00 11/09/20 12:49 DC 11/08/20 09:04 Haloperidol (Haldol) 2 mg STAT STAT IM 11/09/20 09:32 11/09/20 09:33 Cancel Haloperidol (Haldol) 2 mg STAT STAT IV 11/09/20 09:30 11/09/20 09:33 DC 11/09/20 09:40 Haloperidol (Haldol) 10 mg STAT STAT IM 11/09/20 09:55 11/09/20 09:58 DC 11/09/20 10:07 Home Med (Med Rec Complete!) ASDIRECTED XX 11/05/20 22:30 11/05/20 22:20 DC Lorazepam (Ativan) 2 mg Q6HP PRN PO ANXIETY/AGITATION 11/08/20 17:15 11/10/20 13:21 Lorazepam (Ativan) 2 mg STAT STAT IM 11/07/20 14:04 11/07/20 14:08 DC 11/07/20 14:21 Lorazepam (Ativan) 2 mg STAT STAT IM 11/09/20 09:55 11/09/20 09:58 DC 11/09/20 10:08 Lorazepam (Ativan) 2 mg STAT STAT PO 11/08/20 12:48 11/08/20 12:50 DC 11/08/20 12:53 Magnesium Hydroxide (Milk Of Magnesia) 30 ml DAILYPRN PRN PO CONSTIPATION 11/05/20 23:30 Miscellaneous (Unresolved Clarification Entry) SEE LABEL COMMENTS DAILY XX 11/07/20 09:00 11/10/20 16:38 DC Nicotine (Nicoderm Cq 21mg) 1 patch DAILY PRN TD Nicotine withdrawl. 11/05/20 23:30 11/11/20 11:59 Olanzapine (ZyPREXA ZYDIS) 5 mg Q4HP PRN PO AGITATION 11/05/20 23:30 11/11/20 11:54 Olanzapine (ZyPREXA ZYDIS) 10 mg STAT STAT PO 11/08/20 12:48 11/08/20 12:50 DC 11/08/20 12:53 Risperidone (RisperDAL) 0.5 mg BID PO 11/07/20 09:00 11/08/20 10:26 DC 11/08/20 09:04 Risperidone (RisperDAL) 1 mg BID PO 11/08/20 21:00 11/08/20 17:12 DC Risperidone (RisperDAL) 2 mg BID PO 11/08/20 21:00 11/11/20 09:12 Sertraline HCl (Zoloft) 50 mg DAILY PO 11/06/20 09:00 11/07/20 08:51 DC 11/06/20 10:05 Trazodone HCl (Desyrel) 50 mg QHSP PRN PO INSOMNIA 11/05/20 23:30 11/07/20 21:36 Allergies Coded Allergies: No Known Allergies (Verified , 10/28/19) MELA SMITH MD Nov 11, 2020 16:57
[2020-11-11] MEDS: LORazepam 2 MG TAB PO PRN (17:56)
[2020-11-11 18:10] VITALS: BP 142/72
[2020-11-11] MEDS: traZODone 50 MG TAB PO PRN (20:39)
[2020-11-12] MEDS: risperiDONE 2 MG TAB PO SCH (09:22)
[2020-11-12] MEDS: DIVALPROEX 500 MG TAB PO SCH (09:22)
[2020-11-12] MEDS: NICOTINE 21MG/24HR 1 EA TRANSDERMAL TD PRN (09:38)
[2020-11-12] MEDS: LORazepam 2 MG TAB PO PRN (09:38)
[2020-11-12] MEDS ORDERED: LORazepam 2 MG TAB PO STA (14:40)
[2020-11-12] MEDS ORDERED: DEPA1TAB3 PO (14:41)
[2020-11-12] MEDS ORDERED: RISP-9 PO (14:41)
--- NOTE | 2020-11-13 14:46 | MHDSPDOC ---
[facility] Discharge Summary Discharge Summary DATE OF ADMISSION: Nov 05, 2020 at 23:25 DATE OF DISCHARGE: Nov 12, 2020 at 15:58 DISCHARGE DIAGNOSES: Unspecified Psychosis Polysubstance use disorder (Stimulant, Opioid and Cannabis use), severe type REASON FOR ADMISSION: Mr. Molina is a 25 year old undomiciled, single, male with a history of Polysubstance use disorder (Stimulant, Opioid and Cannabis use), severe type, who was brought into the [facility] ED and then later admitted, to the IMU, following experiencing a depressive decompensation with suicidal ideation, intent and vague plan.. CONSULTANTS INVOLVED: Hospitalist/[employer] Machine Operator and mortgage underwriter/Psychiatrist HOSPITAL COURSE/TREATMENT AND PROGRESS ON THE UNIT: Initially, upon first coming to the unit, Rafa was very psychotic, exhibiting both disorganized thought processes and behavior with two episodes which required 4 point restraints and STAT intramuscular injections, due to being physically aggressive with numerous staff members; Due to being a danger to self/others, he was put on a 1:1 observational status. After a few days of refusing his oral regimen, rapport was gradually better established and he started to take his prescribed medications, which included Risperdal which was gradually titrated to 2 mg twice daily and Depakote DR which was gradually titrated to 500 mg twice daily. Depakote trough level was drawn which yielded a therapeutic level. AIMS were routinely conducted, with scores of zero. (No EPS endorsed or exhibited) Due to being COVID positive, he was restricted to his bedroom, but he did attempt to engage in individual therapy, at the bedside. After a few days, his mood and affect greatly improved. His psychotic symptoms greatly abated in intensity and he did not have any episodes of aggression towards the latter part of his hospitalization. He adamantly denied any passive or active suicidal or homicidal ideation, intent or plan throughout the course of his hospitalization. Hes very motivated to maintain his sobriety and agreed to attend an inpatient Rehabilitation program. He was discharged to his mothers residence. Risks have been mitigated by this inpatient Psychiatric hospitalization. DISCHARGE ASSESSMENT: Rafa was initially hospitalized, due to being in a psychotic, decompensated state which was made worse by his Methamphetamine and Opioid use. Upon the illicit substances clearing out of his system, and after agreeing to take Risperdal and Depakote, he was discharged very close to his functional, baseline state. MENTAL STATUS EXAMINATION ON DISCHARGE: He was seen and evaluated, alert and oriented times three, cognition good, hygiene improved, good eye contact, wearing casual clothes, no psychomotor abnormalities. Speech is normal in production, rate and soft in volume. Thought processes are more goal directed and linear. Mood: a lot better, affect: bright, congruent to mood; Thought content: no delusional themes; denies any current passive or active suicidal or homicidal ideation, intent or plan; denies any AH/VH/TH; insight, impulse control and judgment are fair/improved. MEDICATIONS ON DISCHARGE: (7 day supply with 4 refills) Risperdal 2 mg twice daily Depakote DR 500 mg twice daily PLAN/FOLLOWUP ARRANGEMENTS: Extensive psychoeducation was given to Rafa in regards to all risks, benefits and alternatives to all modalities of treatment and he vocalized full understanding. He was given a 7 day supply with 4 refills for Risperdal 2 mg twice daily and Depakote DR 500 mg twice daily. Discharge planners gave him a follow up behavioral health appointment for 11/15/20, and he was also scheduled for an intake for inpatient drug rehabilitation. He was instructed to call 911 or go to the nearest ER if he begins to experience any passive or active suicidal/homicidal ideation, intent or plan or if he starts to experience a decompensation, in reference to his psychiatric symptoms. Rafa and his mother are in full agreement with this plan. The amount of time spent in the coordination of care for this patient was a pproximately 90 minutes. Vital Signs/I&Os Vital Signs Date Time Temp Pulse Resp B/P (MAP) Pulse Ox O2 Delivery O2 Flow Rate FiO2 11/11/20 18:10 99.0 91 16 142/72 (95) 99 Room Air Medications Scheduled Divalproex Sodium (Depakote) 500 Mg Tablet.dr, 500 MG PO BID for mood stabilization, #30 Risperidone (Risperidone) 2 Mg Tablet, 2 MG PO BID for mood stabilization, #30 Allergies Coded Allergies: No Known Allergies (Verified , 10/28/19) MELA SMITH MD Nov 13, 2020 14:46
== END 2020-11-12 15:58 | disposition home or self-care (01) | DRG 754 ==
LOC: M ED 18:51 → M ED INP 23:25 → M PSY 11-06 08:53
PROVIDERS: ADMIT Psychiatry & Neurology Psychiatry; ATTEND Psychiatry & Neurology Geriatric Psychiatry
DX: F32.9 Major depressive disorder, single episode, unspecified (principal); F12.90 Cannabis use, unspecified, uncomplicated; F11.90 Opioid use, unspecified, uncomplicated; F15.90 Other stimulant use, unspecified, uncomplicated

== ENCOUNTER 2021-01-01 03:10 | Emergency (ER) | payer OTHER ==
[~2021-01-01] VITALS: Ht 170.2 cm; Wt 78.8 kg
[2021-01-01 03:10] VITALS: BP 145/98
[~2021-01-01 03:10] MED LIST changes: +DEPA1TAB3 PO; +RISP-9 PO
[2021-01-01] MEDS ORDERED: TETRACAINE 0.5% OPHTH SOLN 4ML OU ONE (03:50)
[2021-01-01] MEDS ORDERED: OLOPATADINE 0.1% OPHTH SOL 5ML(PATANOL) OU ONE (03:50)
== END 2021-01-01 04:23 | disposition home or self-care (01) ==
LOC: M ED 03:10
DX: B30.9 Viral conjunctivitis, unspecified (principal); F20.9 Schizophrenia, unspecified; Z79.899 Other long term (current) drug therapy; F17.210 Nicotine dependence, cigarettes, uncomplicated; F12.20 Cannabis dependence, uncomplicated

== ENCOUNTER 2021-01-07 06:49 | Emergency (ER) | payer OTHER ==
[~2021-01-07] VITALS: Ht 170.2 cm; Wt 81.8 kg
[2021-01-07] MEDS ORDERED: LORazepam 2 MG TAB PO STA (07:46)
[2021-01-07] MEDS ORDERED: HALOPERIDOL 5MG/ML VIAL (J1630 PER 1) IM ONE (08:45)
[2021-01-07] MEDS ORDERED: LORazepam 2 MG/ML VIAL IM ONE (08:45)
[2021-01-07] MEDS ORDERED: diphenhydrAMINE 50MG/ML VIAL (J1200) IM ONE (08:45)
[2021-01-07 15:28] LABS: BASO # 0.1 10^3/uL (0.0-0.2); BASO % 0.4 % (0.0-1.0); EOS % 0.1 % (0.0-3.0); HEMATOCRIT 45.3 % (42.0-52.0); HEMOGLOBIN 14.9 g/dl (13.5-17.5); LYMPH # 2.9 10^3/uL (1.5-5.0); LYMPH % 20.6 % (24.0-44.0); MEAN CORPUSCULAR HEMOGLOBIN 31.4 pg (27.0-33.0); MEAN CORPUSCULAR HGB CONC 32.9 g/dl (32.0-36.5); MEAN CORPUSCULAR VOLUME 95.6 fl (80.0-96.0); MONO # 1.5 10^3/uL (0.0-0.8); MONO % 10.9 % (2.0-8.0); NEUTROPHILS # 9.4 10^3/uL (1.5-8.5); NEUTROPHILS % 67.6 % (36.0-66.0); PLATELET COUNT, AUTOMATED 271 10^3/uL (150-450); RED BLOOD COUNT 4.74 10^6/uL (4.30-6.10); WHITE BLOOD COUNT 13.9 10^3/uL (4.0-10.0)
[2021-01-07 15:44] LABS: ACETAMINOPHEN LEVEL < 2.0 UG/ML (10.0-30.0); ALBUMIN 4.7 GM/DL (3.2-5.2); ALT/SGPT 33 U/L (12-78); BILIRUBIN,DIRECT 0.2 MG/DL (0.0-0.2); BILIRUBIN,TOTAL 0.6 MG/DL (0.2-1.0); BLOOD UREA NITROGEN 17 MG/DL (7-18); CALCIUM LEVEL 9.2 MG/DL (8.5-10.1); CARBON DIOXIDE LEVEL 27 MEQ/L (21-32); CHLORIDE LEVEL 104 MEQ/L (98-107); CREATININE FOR GFR 1.45 MG/DL (0.70-1.30); ETHYL ALCOHOL (ETHANOL) < 0.003 % (0.000-0.010); GLOMERULAR FILTRATION RATE > 60.0 (>60); GLUCOSE, FASTING 95 MG/DL (70-100); POTASSIUM SERUM 3.6 MEQ/L (3.5-5.1); SALICYLATE LEVEL 3.1 MG/DL (5.0-30.0); SODIUM LEVEL 139 MEQ/L (136-145); TOTAL PROTEIN 7.8 GM/DL (6.4-8.2)
[2021-01-07 15:55] LABS: AMPHETAMINES LEVEL URINE POSITIVE (NEGATIVE); BARBITURATES URINE NEGATIVE (NEGATIVE); BENZODIAZEPINES URINE NEGATIVE (NEGATIVE); CANNABINOIDS URINE POSITIVE (NEGATIVE); COCAINE METABOLITE URINE NEGATIVE (NEGATIVE); METHADONE URINE NEGATIVE (NEGATIVE); OPIATES URINE NEGATIVE (NEGATIVE); PHENCYCLIDINE URINE NEGATIVE (NEGATIVE)
[2021-01-08 10:51] VITALS: BP 133/85
== END 2021-01-08 10:53 | disposition home or self-care (01) ==
LOC: M ED 06:49
DX: F15.10 Other stimulant abuse, uncomplicated (principal); F17.210 Nicotine dependence, cigarettes, uncomplicated; Z79.899 Other long term (current) drug therapy
CPT/HCPCS: 36415; 80048; 80076; 80143; 80307; 82077; 84443; 85025; 96372; 99285; J1200; J1630; J2060

== ENCOUNTER 2021-01-20 04:06 | Emergency (ER) | payer OTHER ==
[~2021-01-20] VITALS: Ht 170.2 cm; Wt 76.4 kg
[2021-01-20 08:13] LABS: HEMATOCRIT 45.7 % (42.0-52.0); HEMOGLOBIN 14.6 g/dl (13.5-17.5); MEAN CORPUSCULAR HEMOGLOBIN 30.9 pg (27.0-33.0); MEAN CORPUSCULAR HGB CONC 31.9 g/dl (32.0-36.5); MEAN CORPUSCULAR VOLUME 96.6 fl (80.0-96.0); PLATELET COUNT, AUTOMATED 252 10^3/uL (150-450); RED BLOOD COUNT 4.73 10^6/uL (4.30-6.10); WHITE BLOOD COUNT 7.6 10^3/uL (4.0-10.0)
[2021-01-20 08:40] LABS: AMPHETAMINES LEVEL URINE POSITIVE (NEGATIVE); BARBITURATES URINE NEGATIVE (NEGATIVE); BENZODIAZEPINES URINE NEGATIVE (NEGATIVE); CANNABINOIDS URINE POSITIVE (NEGATIVE); COCAINE METABOLITE URINE POSITIVE (NEGATIVE); METHADONE URINE NEGATIVE (NEGATIVE); OPIATES URINE NEGATIVE (NEGATIVE); PHENCYCLIDINE URINE NEGATIVE (NEGATIVE)
[2021-01-20 08:49] LABS: ALBUMIN 4.5 GM/DL (3.2-5.2); ALT/SGPT 43 U/L (12-78); BILIRUBIN,DIRECT 0.1 MG/DL (0.0-0.2); BILIRUBIN,TOTAL 0.3 MG/DL (0.2-1.0); BLOOD UREA NITROGEN 14 MG/DL (7-18); CARBON DIOXIDE LEVEL 30 MEQ/L (21-32); CHLORIDE LEVEL 105 MEQ/L (98-107); CREATININE FOR GFR 0.97 MG/DL (0.70-1.30); GLOMERULAR FILTRATION RATE > 60.0 (>60); GLUCOSE, FASTING 96 MG/DL (70-100); SALICYLATE LEVEL 3.8 MG/DL (5.0-30.0); SODIUM LEVEL 140 MEQ/L (136-145); TOTAL PROTEIN 7.6 GM/DL (6.4-8.2)
[2021-01-20 08:51] LABS: ACETAMINOPHEN LEVEL < 2.0 UG/ML (10.0-30.0); ETHYL ALCOHOL (ETHANOL) < 0.003 % (0.000-0.010)
[2021-01-20 10:19] VITALS: BP 142/62
== END 2021-01-20 10:26 | disposition home or self-care (01) ==
LOC: M ED 04:06
DX: F19.10 Other psychoactive substance abuse, uncomplicated (principal); F32.9 Major depressive disorder, single episode, unspecified; F17.200 Nicotine dependence, unspecified, uncomplicated